=== PATIENT | female | born 1930 | race Caucasian/White ===

== ENCOUNTER 2018-07-15 15:05 | Inpatient (IN) ==
--- NOTE | 2018-07-15 15:15 | Emergency Department Note ---
Disposition Clinical Impression: Hypoxemia, CHAYITO (acute kidney injury) CHF (congestive heart failure) Qualifiers: Heart failure type: unspecified Heart failure chronicity: acute on chronic Qualified Code(s): I50.9 - Heart failure, unspecified Disposition: Admitted As Inpatient General Adult HPI - General Stated complaint: retaining fluids Time Seen by Provider: 07/15/18 15:14 Nursing Notes Reviewed: Yes Vital Signs Reviewed: Yes - History of Present Illness HPI Narrative: Patient's an 87-year-old female with history of A. fib with RVR, CHF, COPD, dementia, diabetes, hypertension, CKD history of DVT, on eliquis who presents emergency Department with complaints of fluid overload. The patient has reportedly gained approximately 18 pounds in the past month. The patient has noticed slight increase in swelling in her legs and abdomen over the past month. She does not state that she feels significantly more short of breath than her baseline but she does sleep upright and uses BiPAP at night due to sleep apnea. She is on baseline 2 L of oxygen at home. She otherwise denies any fever, chills, chest pain, abdominal pain, dysuria, hematuria. - Related Data Home Medications Medication Instructions Recorded Confirmed Acetaminophen [Pain Reliever] 500 mg PO Q6H PRN 05/12/18 07/15/18 Acetaminophen [Tylenol Arthritis] 1,300 mg PO BID 05/12/18 05/12/18 Aspirin 81 mg PO HS 05/12/18 07/15/18 Docusate [Colace] 100 mg PO HS 05/12/18 07/15/18 Donepezil [Aricept] 10 mg PO HS 05/12/18 07/15/18 Ipratropium/Albuterol Neb [Duoneb] 3 ml IH Q4HR PRN 05/12/18 07/15/18 Melatonin 3 mg PO HS 05/12/18 07/15/18 Memantine HCl 10 mg PO BID 05/12/18 07/15/18 Nitroglycerin [Nitrostat] 0.4 mg SL Q5MIN PRN 05/12/18 07/15/18 Quetiapine Fumarate [Seroquel] 25 mg PO TID 05/12/18 07/15/18 Simvastatin [Zocor] 40 mg PO HS 05/12/18 07/15/18 Venlafaxine HCl [Venlafaxine HCl 150 mg PO DAILY 05/12/18 05/12/18 ER] Furosemide [Lasix] 40 mg PO BID 05/13/18 07/15/18 Guaifenesin 400 mg PO BID 05/13/18 07/15/18 Losartan [Cozaar] 50 mg PO DAILY 05/13/18 05/13/18 MOM Conc [MILK OF HUONG conc] 10 ml PO DAILY PRN 05/13/18 07/15/18 Multivitamin [Multivitamins] 1 each PO DAILY 05/13/18 07/15/18 Omega3/Dha/Epa/Fish Oil/Vit D3 1 each PO DAILY 05/13/18 07/15/18 [Fish Oil + Vitamin D-3 Softgel] Vitamin B Complex [Balanced B-50] 1 each PO DAILY 05/13/18 07/15/18 Acetaminophen [Non-Aspirin Extra 500 mg PO Q6H PRN 07/15/18 07/15/18 Strength] Ceftriaxone Sodium [Ceftriaxone] 1 gm IM DAILY 07/15/18 07/15/18 LORazepam [Ativan] 0.5 mg PO BID 07/15/18 07/15/18 Previous Rx's Medication Instructions Recorded Apixaban [Eliquis] 5 mg PO BID tablet 05/19/18 Cefdinir [Omnicef] 300 mg PO BID #6 capsule 05/19/18 Insulin LISPRO [HumaLOG] 0 units SQ HS vial 05/19/18 Insulin LISPRO [HumaLOG] 0 units SQ TIDAC vial 05/19/18 Levalbuterol Neb [Xopenex Neb] 1.25 mg IH Q4H PRN vial.neb 05/19/18 Metoprolol XL (24 HR) Succ [Toprol 200 mg PO DAILY tab.er.24h 05/19/18 Xl] Allergies Allergy/AdvReac Type Severity Reaction Status Date / Time atorvastatin [From Lipitor] Allergy See Verified 12/08/16 14:28 Comments meperidine [From Demerol] Allergy See Verified 12/08/16 14:28 Comments Penicillins Allergy See Verified 05/12/18 15:29 Comments pravastatin [From Pravachol] Allergy See Verified 12/08/16 14:28 Comments quinapril [From Accupril] Allergy See Verified 12/08/16 14:28 Comments Sulfa (Sulfonamide Allergy See Verified 12/08/16 14:28 Antibiotics) Comments Review of Systems: ROS per history of present illness, all other systems reviewed and negative or normal. All systems ED: reviewed and negative except as stated. Review of Systems: As Per HPI Past Medical History - Past Medical History Medical history: Reports: atrial fibrillation, COPD, dementia, diabetes, hypertension, renal disease Surgical history: Reports: carotid endarterectomy (bilateral), cholecystectomy, hip replacement (left), RAHUL/BSO, other (cervical fusion) Psychiatric history: Reports: depression - Social History Smoking Status: Never smoker Smokeless Tobacco Status: No Alcohol use: Reports: none Drug use: Reports: none Physical Exam General: Conversant. No apparent distress. Follow commands. Appears stated age. Neck: No JVD. Trachea midline. Neck supple. Eyes: PERRL. No scleral icterus. HENT: Normocephalic and atraumatic. Moist mucus membranes. Cardiovascular: Regular rate and rhythm. Normal S1 and S2. No murmurs appreciated. Normal capillary refill. Extremities well perfused with 2+ distal pulses bilaterally. 2-3+ edema pitting bilaterally up to the level of her ankles. No abdominal edema. Pulmonary: Crackles in bilateral bases. No wheezing. Not in respiratory distress on baseline 2 L. Speaks in full sentences. Abdomen: Soft, nondistended, and tontender. No bruits or masses. No guarding. Neuro: Alert and oriented x3. No slurred speech. No focal deficits noted. Skin: No rashes noted on visualized skin. Musculoskeletal: No bony abnormalities visualized. Moves all extremities. Psych: Normal mood. Pleasant. Makes appropriate eye contact. Course Vital Signs Temperature 97.7 F 07/15/18 15:08 Pulse Rate 103 07/15/18 15:08 Respiratory Rate 24 07/15/18 15:08 Blood Pressure 149/79 07/15/18 15:08 O2 Sat by Pulse Oximetry 91 07/15/18 15:08 Temperature 97.7 F 07/15/18 15:08 Pulse Rate 92 07/15/18 17:25 Respiratory Rate 21 07/15/18 17:25 Blood Pressure 138/97 07/15/18 17:28 O2 Sat by Pulse Oximetry 100 07/15/18 17:25 Oxygen Delivery Oxygen Delivery Nasal Cannula Medical Decision Making - [facility] Narrative Medical decision making narrative: 87 year old female with history of CHF, atrial fibrillation, COPD, RISSA, dementia, diabetes, hypertension and chronic kidney disease who presents the emergency department with complaints of fluid overload. On arrival the patient's vital signs are stable. She is alert and oriented and able to speak though does appear hard of hearing. She does have significant peripheral edema and crackles on examination. Did obtain CBC, BMP, EKG, chest x-ray, BNP, ABG and troponin which showed no significant electrolyte abnormalities. ABG shows hypoxemia which is likely her baseline given need for 2L at home. EKG appears approcimately her baseline, A. fib. BNP elevated at 751. Troponin undetectable 1. She does not have a urinary tract infection. Chest x-ray shows cardiomegaly with bibasilar atelectasis and pleural effusions. Given the pat ient's significant weight gain and peripheral edema given did give the patient 40 mg IV Lasix for CHF exacerbation. PAtient does have RISSA and requires CPAP during naps. Discussed case with on-call hospitalist Dr. Liz who agrees with plan for admission and accepts the patient to the inpatient service. Patient agrees with and understands course of treatment plan including plan for admission. All questions answered. - Medical Records Medical records reviewed: Yes I reviewed the patient's medical records. - Lab Data Lab results reviewed: Yes I reviewed the patient's lab results. Result diagrams: 07/15/18 16:17 Lab Results 07/15/18 07/15/18 07/15/18 Range/Units 15:37 16:17 16:17 Sample Site ABG pH (7.32-7.45) pH Units ABG pCO2 (35-45) mmHg ABG pO2 (85-104) mmHg ABG HCO3 (21-27) mEq/L ABG Total CO2 (20-26) mEq/L ABG O2 Saturation (95-98) % ABG Base Excess (-2 to 3) mEq/L Collin Test O2 Delivery Device Inspired O2 (1-15=lpm [id number]=%) Sodium 138 (136-145) mEq/L Potassium 3.8 (3.5-5.1) mEq/L Chloride 101 (98-107) mEq/L Carbon Dioxide 29 (23-29) mEq/L BUN 28 H (8-23) mg/dL Creatinine 1.21 H (0.60-1.20) mg/dL Est GFR ( Amer) 51 L (> 60) Est GFR (Non-Af Amer) 42 L (> 60) BUN/Creatinine Ratio 23 (6-26) Glucose 146 H (70-105) mg/dL Calculated Osmolality 294 (280-300) Calcium 8.9 (8.6-10.3) mg/dL Total Bilirubin 0.5 (0.3-1.0) mg/dL AST 26 (13-39) Units/L ALT 49 (7-52) Units/L Alkaline Phosphatase 79 (34-104) Units/L Troponin I < 0.03 (< 0.04) ng/mL B-Natriuretic Peptide 751 H (Less than 100) pg/mL Serum Total Protein 6.1 L (6.4-8.9) g/dL Albumin 3.3 L (3.5-5.7) g/dL Globulin 2.8 (2.4-3.5) g/dL Albumin/Globulin Ratio 1.2 (1.1-2.2) Urine Color Yellow (Yellow) Urine Clarity Cloudy A (Clear) Urine pH 5.5 (5.0-8.0) pH Units Ur Specific [place] 1.012 (1.010-1.025) Urine Protein Negative (Neg-Trace) mg/dL Urine Glucose (UA) Normal (Normal) mg/dL Urine Ketones Negative (Negative) mg/dL Urine Blood Negative (Negative) Urine Nitrite Negative (Negative) Urine Bilirubin Negative (Negative) Urine Urobilinogen Normal (Normal) mg/dL Ur Leukocyte Esterase Moderate H (Negative) Urine Microscopic RBC 0-3 (0-3) per hpf Urine Microscopic WBC 5-15 H (0-3) per hpf Ur Squamous Epith Cells Many H (None-Few) per lpf Ur Transition Epith Cell Moderate H (None-Few) per hpf Urine Bacteria None Seen (None-Few) per hpf Hyaline Casts Moderate H (None-Few) per lpf Ur Culture Indicated? NO. A (NO) 07/15/18 Range/Units 17:19 Sample Site R Radial ABG pH 7.38 (7.32-7.45) pH Units ABG pCO2 52 H (35-45) mmHg ABG pO2 141 H (85-104) mmHg ABG HCO3 31 H (21-27) mEq/L ABG Total CO2 32 H (20-26) mEq/L ABG O2 Saturation 99 H (95-98) % ABG Base Excess 5 H (-2 to 3) mEq/L Collin Test Positive O2 Delivery Device Cannula Inspired O2 3.0 (1-15=lpm [id number]=%) Sodium (136-145) mEq/L Potassium (3.5-5.1) mEq/L Chloride (98-107) mEq/L Carbon Dioxide (23-29) mEq/L BUN (8-23) mg/dL Creatinine (0.60-1.20) mg/dL Est GFR ( Amer) (> 60) Est GFR (Non-Af Amer) (> 60) BUN/Creatinine Ratio (6-26) Glucose (70-105) mg/dL Calculated Osmolality (280-300) Calcium (8.6-10.3) mg/dL Total Bilirubin (0.3-1.0) mg/dL AST (13-39) Units/L ALT (7-52) Units/L Alkaline Phosphatase (34-104) Units/L Troponin I (< 0.04) ng/mL B-Natriuretic Peptide (Less than 100) pg/mL Serum Total Protein (6.4-8.9) g/dL Albumin (3.5-5.7) g/dL Globulin (2.4-3.5) g/dL Albumin/Globulin Ratio (1.1-2.2) Urine Color (Yellow) Urine Clarity (Clear) Urine pH (5.0-8.0) pH Units Ur Specific [place] (1.010-1.025) Urine Protein (Neg-Trace) mg/dL Urine Glucose (UA) (Normal) mg/dL Urine Ketones (Negative) mg/dL Urine Blood (Negative) Urine Nitrite (Negative) Urine Bilirubin (Negative) Urine Urobilinogen (Normal) mg/dL Ur Leukocyte Esterase (Negative) Urine Microscopic RBC (0-3) per hpf Urine Microscopic WBC (0-3) per hpf Ur Squamous Epith Cells (None-Few) per lpf Ur Transition Epith Cell (None-Few) per hpf Urine Bacteria (None-Few) per hpf Hyaline Casts (None-Few) per lpf Ur Culture Indicated? (NO) - Radiology Data Radiology results reviewed: Yes I reviewed the patient's radiology results. Chest X-Ray 07/15/18 15:23 IMPRESSION: 1. Cardiomegaly with mild congestive heart failure. 2. Bibasilar atelectasis with bilateral effusions. D/ / 07/15/2018 16:10:09 Cecile Hinton MD / [facility] Interpreting Provider: Cecile Hinton MD - EKG Data EKG #1 EKG attestation: Yes I reviewed and interpreted this EKG. EKG results narrative: Atrial fibrillation rate of 99. Normal axis. No acute ischemic changes When compared with prior from 05/12/18 previously seen atrial fibrillation with rapid ventricular rate has improved.
--- NOTE | 2018-07-15 15:42 | Emergency Department Note ---
Disposition Clinical Impression: Hypoxemia CHF (congestive heart failure) Qualifiers: Heart failure type: unspecified Heart failure chronicity: acute on chronic Qualified Code(s): I50.9 - Heart failure, unspecified Disposition: Admitted As Inpatient Condition: Fair Forms: ED Satisfaction Letter, Work/School Release General Adult HPI - General Chief complaint: ED General Medical Stated complaint: retaining fluids Time Seen by Provider: 07/15/18 15:14 Source: patient, other Limitations: no limitations - History of Present Illness Pain Scale: 0 - Related Data Home Medications Medication Instructions Recorded Confirmed Acetaminophen [Pain Reliever] 500 mg PO Q6H PRN 05/12/18 07/15/18 Acetaminophen [Tylenol Arthritis] 1,300 mg PO BID 05/12/18 05/12/18 Aspirin 81 mg PO HS 05/12/18 07/15/18 Docusate [Colace] 100 mg PO HS 05/12/18 07/15/18 Donepezil [Aricept] 10 mg PO HS 05/12/18 07/15/18 Ipratropium/Albuterol Neb [Duoneb] 3 ml IH Q4HR PRN 05/12/18 07/15/18 Melatonin 3 mg PO HS 05/12/18 07/15/18 Memantine HCl 10 mg PO BID 05/12/18 07/15/18 Nitroglycerin [Nitrostat] 0.4 mg SL Q5MIN PRN 05/12/18 07/15/18 Quetiapine Fumarate [Seroquel] 25 mg PO TID 05/12/18 07/15/18 Simvastatin [Zocor] 40 mg PO HS 05/12/18 07/15/18 Venlafaxine HCl [Venlafaxine HCl 150 mg PO DAILY 05/12/18 05/12/18 ER] Furosemide [Lasix] 40 mg PO BID 05/13/18 07/15/18 Guaifenesin 400 mg PO BID 05/13/18 07/15/18 Losartan [Cozaar] 50 mg PO DAILY 05/13/18 05/13/18 MOM Conc [MILK OF MAGNESIA conc] 10 ml PO DAILY PRN 05/13/18 07/15/18 Multivitamin [Multivitamins] 1 each PO DAILY 05/13/18 07/15/18 Omega3/Dha/Epa/Fish Oil/Vit D3 1 each PO DAILY 05/13/18 07/15/18 [Fish Oil + Vitamin D-3 Softgel] Vitamin B Complex [Balanced B-50] 1 each PO DAILY 05/13/18 07/15/18 Acetaminophen [Non-Aspirin Extra 500 mg PO Q6H PRN 07/15/18 07/15/18 Strength] Ceftriaxone Sodium [Ceftriaxone] 1 gm IM DAILY 07/15/18 07/15/18 LORazepam [Ativan] 0.5 mg PO BID 07/15/18 07/15/18 Previous Rx's Medication Instructions Recorded Apixaban [Eliquis] 5 mg PO BID tablet 05/19/18 Cefdinir [Omnicef] 300 mg PO BID #6 capsule 05/19/18 Insulin LISPRO [HumaLOG] 0 units SQ HS vial 05/19/18 Insulin LISPRO [HumaLOG] 0 units SQ TIDAC vial 05/19/18 Levalbuterol Neb [Xopenex Neb] 1.25 mg IH Q4H PRN vial.neb 05/19/18 Metoprolol XL (24 HR) Succ [Toprol 200 mg PO DAILY tab.er.24h 05/19/18 Xl] Allergies Allergy/AdvReac Type Severity Reaction Status Date / Time atorvastatin [From Lipitor] Allergy See Verified 12/08/16 14:28 Comments meperidine [From Demerol] Allergy See Verified 12/08/16 14:28 Comments Penicillins Allergy See Verified 05/12/18 15:29 Comments pravastatin [From Pravachol] Allergy See Verified 12/08/16 14:28 Comments quinapril [From Accupril] Allergy See Verified 12/08/16 14:28 Comments Sulfa (Sulfonamide Allergy See Verified 12/08/16 14:28 Antibiotics) Comments Past Medical History - Past Medical History Medical history: Reports: atrial fibrillation, COPD, dementia, diabetes, hypertension, renal disease Surgical history: Reports: carotid endarterectomy (bilateral), cholecystectomy, hip replacement (left), RAHUL/BSO, other (cervical fusion) Psychiatric history: Reports: depression - Social History Smoking Status: Never smoker Smokeless Tobacco Status: No Alcohol use: Reports: none Drug use: Reports: none Physical Exam - General Limitations: no limitations General appearance: alert, in no apparent distress, appears intoxicated Course Vital Signs Temperature 97.7 F 07/15/18 15:08 Pulse Rate 103 07/15/18 15:08 Respiratory Rate 24 07/15/18 15:08 Blood Pressure 149/79 07/15/18 15:08 O2 Sat by Pulse Oximetry 91 07/15/18 15:08 Temperature 97.7 F 07/15/18 15:08 Pulse Rate 92 07/15/18 17:25 Respiratory Rate 21 07/15/18 17:25 Blood Pressure 138/97 07/15/18 17:28 O2 Sat by Pulse Oximetry 100 07/15/18 17:25 Oxygen Delivery Oxygen Delivery Nasal Cannula Medical Decision Making - MDM Narrative Medical decision making narrative: suspect worsening chf now with cardiomegaly and effusions and hypoxia. admit to hospitalist. pH was ok and CO2 only slightly elevated. may need possible bipap. - Medical Records Medical records reviewed: Yes I reviewed the patient's medical records. - Lab Data Lab results reviewed: Yes I reviewed the patient's lab results. Result diagrams: 07/15/18 16:17 Lab Results 07/15/18 07/15/18 07/15/18 Range/Units 15:37 16:17 16:17 Sample Site ABG pH (7.32-7.45) pH Units ABG pCO2 (35-45) mmHg ABG pO2 (85-104) mmHg ABG HCO3 (21-27) mEq/L ABG Total CO2 (20-26) mEq/L ABG O2 Saturation (95-98) % ABG Base Excess (-2 to 3) mEq/L Collin Test O2 Delivery Device Inspired O2 (1-15=lpm [id number]=%) Sodium 138 (136-145) mEq/L Potassium 3.8 (3.5-5.1) mEq/L Chloride 101 (98-107) mEq/L Carbon Dioxide 29 (23-29) mEq/L BUN 28 H (8-23) mg/dL Creatinine 1.21 H (0.60-1.20) mg/dL Est GFR ( Amer) 51 L (> 60) Est GFR (Non-Af Amer) 42 L (> 60) BUN/Creatinine Ratio 23 (6-26) Glucose 146 H (70-105) mg/dL Calculated Osmolality 294 (280-300) Calcium 8.9 (8.6-10.3) mg/dL Total Bilirubin 0.5 (0.3-1.0) mg/dL AST 26 (13-39) Units/L ALT 49 (7-52) Units/L Alkaline Phosphatase 79 (34-104) Units/L Troponin I < 0.03 (< 0.04) ng/mL B-Natriuretic Peptide 751 H (Less than 100) pg/mL Serum Total Protein 6.1 L (6.4-8.9) g/dL Albumin 3.3 L (3.5-5.7) g/dL Globulin 2.8 (2.4-3.5) g/dL Albumin/Globulin Ratio 1.2 (1.1-2.2) Urine Color Yellow (Yellow) Urine Clarity Cloudy A (Clear) Urine pH 5.5 (5.0-8.0) pH Units Ur Specific [place] 1.012 (1.010-1.025) Urine Protein Negative (Neg-Trace) mg/dL Urine Glucose (UA) Normal (Normal) mg/dL Urine Ketones Negative (Negative) mg/dL Urine Blood Negative (Negative) Urine Nitrite Negative (Negative) Urine Bilirubin Negative (Negative) Urine Urobilinogen Normal (Normal) mg/dL Ur Leukocyte Esterase Moderate H (Negative) Urine Microscopic RBC 0-3 (0-3) per hpf Urine Microscopic WBC 5-15 H (0-3) per hpf Ur Squamous Epith Cells Many H (None-Few) per lpf Ur Transition Epith Cell Moderate H (None-Few) per hpf Urine Bacteria None Seen (None-Few) per hpf Hyaline Casts Moderate H (None-Few) per lpf Ur Culture Indicated? NO. A (NO) 07/15/18 Range/Units 17:19 Sample Site R Radial ABG pH 7.38 (7.32-7.45) pH Units ABG pCO2 52 H (35-45) mmHg ABG pO2 141 H (85-104) mmHg ABG HCO3 31 H (21-27) mEq/L ABG Total CO2 32 H (20-26) mEq/L ABG O2 Saturation 99 H (95-98) % ABG Base Excess 5 H (-2 to 3) mEq/L Collin Test Positive O2 Delivery Device Cannula Inspired O2 3.0 (1-15=lpm [id number]=%) Sodium (136-145) mEq/L Potassium (3.5-5.1) mEq/L Chloride (98-107) mEq/L Carbon Dioxide (23-29) mEq/L BUN (8-23) mg/dL Creatinine (0.60-1.20) mg/dL Est GFR ( Amer) (> 60) Est GFR (Non-Af Amer) (> 60) BUN/Creatinine Ratio (6-26) Glucose (70-105) mg/dL Calculated Osmolality (280-300) Calcium (8.6-10.3) mg/dL Total Bilirubin (0.3-1.0) mg/dL AST (13-39) Units/L ALT (7-52) Units/L Alkaline Phosphatase (34-104) Units/L Troponin I (< 0.04) ng/mL B-Natriuretic Peptide (Less than 100) pg/mL Serum Total Protein (6.4-8.9) g/dL Albumin (3.5-5.7) g/dL Globulin (2.4-3.5) g/dL Albumin/Globulin Ratio (1.1-2.2) Urine Color (Yellow) Urine Clarity (Clear) Urine pH (5.0-8.0) pH Units Ur Specific [place] (1.010-1.025) Urine Protein (Neg-Trace) mg/dL Urine Glucose (UA) (Normal) mg/dL Urine Ketones (Negative) mg/dL Urine Blood (Negative) Urine Nitrite (Negative) Urine Bilirubin (Negative) Urine Urobilinogen (Normal) mg/dL Ur Leukocyte Esterase (Negative) Urine Microscopic RBC (0-3) per hpf Urine Microscopic WBC (0-3) per hpf Ur Squamous Epith Cells (None-Few) per lpf Ur Transition Epith Cell (None-Few) per hpf Urine Bacteria (None-Few) per hpf Hyaline Casts (None-Few) per lpf Ur Culture Indicated? (NO) - Radiology Data Radiology results reviewed: Yes I reviewed the patient's radiology results. Attestation Statement - Attestation Attestation: I examined this patient and my medical decision-making was reviewed with the Resident Physician. I agree with the documented findings, disposition and treatment plan as described except to the extent set forth below. 87 yo F here from [facility] for fluid retention, leg swelling, increased sleepiness. concerns for chf. has gained weight over last few weeks. hx of chf, on lasix, hx of a fib. on blood thinners. will workup for chf and check urinalysis. Chronic O2 dependent as well. ekg shows a rate of 99. Intrafibrillation. Relaxants. QRS 92. QTC 516. No signs acute ischemia.
[2018-07-15 16:05] LABS: Bilirubin,Urine Negative (Negative); Blood,Urine Negative (Negative); Clarity,Urine Cloudy (Clear); Color,Urine Yellow (Yellow); Glucose,Urine (UA) Normal (Normal); Ketones,Urine Negative (Negative); Leukocyte Esterase,Urine Moderate (Negative); Nitrite,Urine Negative (Negative); PH,Urine 5.5 pH Units (5.0-8.0); Protein,Urine Negative (Neg-Trace); Specific Gravity,Urine 1.012 (1.010-1.025); Urobilinogen,Urine Normal (Normal)
[2018-07-15 16:08] LABS: Bacteria,Urine None Seen per hpf (None-Few); Hyaline Casts,Urine Moderate per lpf (None-Few); RBC,Urine 0-3 per hpf (0-3); Squamous Epithelial Cell,Urine Many per lpf (None-Few)
[2018-07-15 16:37] LABS: Transitional Epi Cells,Urine Moderate per hpf (None-Few)
[2018-07-15 17:10] LABS: Alanine Aminotransferase 49 Units/L (7-52); Albumin 3.3 g/dL (3.5-5.7); Albumin/Globulin Ratio 1.2 (1.1-2.2); Alkaline Phosphatase 79 Units/L (34-104); Aspartate Amino Transferase 26 Units/L (13-39); BUN/Creatinine Ratio 23 (6-26); Bilirubin,Total 0.5 mg/dL (0.3-1.0); Blood Urea Nitrogen 28 mg/dL (8-23); Calcium 8.9 mg/dL (8.6-10.3); Carbon Dioxide 29 mEq/L (23-29); Chloride 101 mEq/L (98-107); Globulin 2.8 g/dL (2.4-3.5); Glucose 146 mg/dL (70-105); Osmolality,Calculated 294 (280-300); Potassium 3.8 mEq/L (3.5-5.1); Sodium 138 mEq/L (136-145); Total Protein 6.1 g/dL (6.4-8.9); Troponin I < 0.03 ng/mL (< 0.04); eGFR For Non-African Americans 42 (> 60)
[2018-07-15] MEDS ORDERED: Furosemide 40 MG/4 ML VIAL IVP ONE (17:13)
[2018-07-15 17:24] LABS: ABG Base Excess 5 mEq/L (-2 to 3); ABG HCO3 31 mEq/L (21-27); ABG Oxygen Saturation 99 % (95-98); ABG PCO2 52 mmHg (35-45); ABG PH 7.38 pH Units (7.32-7.45); ABG PO2 141 mmHg (85-104); ABG TCO2 32 mEq/L (20-26)
[2018-07-15] MEDS ORDERED: Nitroglycerin 0.4 MG TAB.SUBL SL PRN (20:18)
[2018-07-15] MEDS ORDERED: Ipratropium/Albuterol Neb 3 ML IH PRN (20:18)
[2018-07-15] MEDS ORDERED: Levalbuterol Neb 1.25 MG/3 ML IH PRN (20:18)
[2018-07-15] MEDS ORDERED: MOM Conc 10 ML UD.LIQ PO PRN (20:18)
--- NOTE | 2018-07-15 20:26 | Internal Med History&Physical ---
Date of Encounter: 07/15/18 Time of Encounter: 20:22 Internal Medicine - H&P: HPI Chief complaint: Fluid retention History of present illness: Ms. Reyez is a 87 year old female with PMH of paroxysmal a fibrillation on anticoagulation, dementia, SVT, coronary artery disease, type 2 diabetes, COPD, CKG and history of DVT who presented to the ED with a chief complaint of fluid overload. On my assessment patient was somewhat of a poor historian, difficulty hearing. At baseline patient is reported to be alert oriented 1-2 given her dementia. As such, history was obtained from previous medical records and ED report. Patient presents from her extended care facility with reportedly 18 pound weight gain in the past month. She has had increased swelling in the leg and abdomen. Patient currently takes 40 mg of Lasix twice a day. No reports of chest pain or recent illness. Cannot determine dietary indiscretions or medication compliance. On arrival patient was afebrile, hemodynamically stable with mild tachycardia. Laboratory workup was notable for a mild CHAYITO and BNP of 751. Chest x-ray shows cardiomegaly with mild congestive heart failure and bilateral effusions. EKG showed atrial fibrillation rate controlled with no ischemic changes. Patient was given 1 dose of 40 mg IV push Lasix in the ED. We will admit for possible CHF exacerbation. Past Med Surg Social Fam HX - Past Medical History Medical history: atrial fibrillation, COPD, dementia, diabetes, hypertension, renal disease Additional medical history: anemia, CKD Psychiatric history: depression - Past Surgical History Surgical History: carotid endarterectomy (bilateral), cholecystectomy, hip replacement (left), RAHUL/BSO, other (cervical fusion) Additional surgical history: L hip replacement 2003, mult back, - Social History Smoking Status: Never smoker Smokeless Tobacco Status: No Alcohol use: none Drug use: none - Family History Mother Living Status: Hx Family Cardiac Disorders: Yes (CAD, HTN) Father Living Status: Hx Family Cardiac Disorders: Yes (CAD, HTN) Brother Hx Family Cardiac Disorders: Yes (multiple brothers with CAD) Internal Medicine - H&P: Meds Acetaminophen [Pain Reliever] 500 mg PO Q6H PRN 05/12/18 [History] Acetaminophen [Tylenol Arthritis] 1,300 mg PO BID 05/12/18 [History] Aspirin 81 mg PO HS 05/12/18 [History] Docusate [Colace] 100 mg PO HS 05/12/18 [History] Donepezil [Aricept] 10 mg PO HS 05/12/18 [History] Ipratropium/Albuterol Neb [Duoneb] 3 ml IH Q4HR PRN 05/12/18 [History] Melatonin 3 mg PO HS 05/12/18 [History] Memantine HCl 10 mg PO BID 05/12/18 [History] Nitroglycerin [Nitrostat] 0.4 mg SL Q5MIN PRN 05/12/18 [History] Quetiapine Fumarate [Seroquel] 25 mg PO TID 05/12/18 [History] Simvastatin [Zocor] 40 mg PO HS 05/12/18 [History] Venlafaxine HCl [Venlafaxine HCl ER] 150 mg PO DAILY 05/12/18 [History] Furosemide [Lasix] 40 mg PO BID 05/13/18 [History] Guaifenesin 400 mg PO BID 05/13/18 [History] Losartan [Cozaar] 50 mg PO DAILY 05/13/18 [History] MOM Conc [MILK OF MAGNESIA conc] 10 ml PO DAILY PRN 05/13/18 [History] Multivitamin [Multivitamins] 1 each PO DAILY 05/13/18 [History] Omega3/Dha/Epa/Fish Oil/Vit D3 [Fish Oil + Vitamin D-3 Softgel] 1 each PO DAILY 05/13/18 [History] Vitamin B Complex [Balanced B-50] 1 each PO DAILY 05/13/18 [History] Apixaban [Eliquis] 5 mg PO BID tablet 05/19/18 [Rx] Cefdinir [Omnicef] 300 mg PO BID #6 capsule 05/19/18 [Rx] Insulin LISPRO [HumaLOG] 0 units SQ HS vial 05/19/18 [Rx] Insulin LISPRO [HumaLOG] 0 units SQ TIDAC vial 05/19/18 [Rx] Levalbuterol Neb [Xopenex Neb] 1.25 mg IH Q4H PRN vial.neb 05/19/18 [Rx] Metoprolol XL (24 HR) Succ [Toprol Xl] 200 mg PO DAILY tab.er.24h 05/19/18 [Rx] Acetaminophen [Non-Aspirin Extra Strength] 500 mg PO Q6H PRN 07/15/18 [History] Ceftriaxone Sodium [Ceftriaxone] 1 gm IM DAILY 07/15/18 [History] LORazepam [Ativan] 0.5 mg PO BID 07/15/18 [History] Allergy/AdvReac Type Severity Reaction Status Date / Time atorvastatin [From Lipitor] Allergy See Verified 12/08/16 14:28 Comments meperidine [From Demerol] Allergy See Verified 12/08/16 14:28 Comments Penicillins Allergy See Verified 05/12/18 15:29 Comments pravastatin [From Pravachol] Allergy See Verified 12/08/16 14:28 Comments quinapril [From Accupril] Allergy See Verified 12/08/16 14:28 Comments Sulfa (Sulfonamide Allergy See Verified 12/08/16 14:28 Antibiotics) Comments All Systems PM: A 10-system review of systems was performed and is negative for pertinent findings except as documented above in the HPI. - Constitutional Constitutional: no chills, no fever(s), no night sweats - EENT Eyes: no change in vision, no discharge, no pain, no photophobia Ears: no ear discharge, no ear pain, no tinnitus Nose, mouth and throat: no dysphagia, no nasal discharge, no neck pain, no sore throat - Cardiovascular Cardiovascular ROS IM: no chest pain, no diaphoresis, no dyspnea, no lightheadedness, no palpitations, no syncope - Respiratory Respiratory: no cough, no dyspnea, no wheezing, no excessive phlegm production - Gastrointestinal Gastrointestinal: no abdominal pain, no diarrhea, no hematemesis, no hematoch ezia, no melena, no nausea, no vomiting - Genitourinary Genitourinary: no change in urinary stream, no dysuria, no flank pain, no hematuria - Musculoskeletal Musculoskeletal ROS IM: no numbness, no tingling - Integumentary Integumentary IM: no rash, no unusual bruising - Neurological Neurological ROS: no confusion, no convulsions, no focal weakness, no numbness, no tingling, no tremor(s) - Hematologic/Lymphatic Hematologic/Lymphatic: no easy bruising - Constitutional Vitals: Temp Pulse Resp BP Pulse Ox 97.6 F 112 17 135/89 97 07/15/18 20:15 07/15/18 20:15 07/15/18 20:15 07/15/18 20:15 07/15/18 20:15 Exam: General: Alert and oriented Skin:Normal color, no rash, no lesions. HEENT:EOM, pupils equal, round and reactive. Cardiovascular:Normal S1 & S2, no rubs, murmurs or gallops. No JVD. Pulse regular. Lungs:Normal breath sounds, no wheezes or crackles. Abdomen:Soft, non-tender, no rigidity. Extremities:No deformity, no edema or tenderness, no joint swelling or clubbing. Neurological:Normal cognition and motor skills. Pulses:Carotid and radial pulses normal +2. Rest of the physical exam is non contributory Internal Med - H&P Results - Labs CBC & Chem 7: 07/15/18 16:17 Labs: BMP 07/15/18 16:17 Sodium 138 Potassium 3.8 Chloride 101 Carbon Dioxide 29 BUN 28 H Creatinine 1.21 H Glucose 146 H Calcium 8.9 Cardiac Enzymes 07/15/18 Range/Units 16:17 Troponin I < 0.03 (< 0.04) ng/mL Liver Function 07/15/18 Range/Units 16:17 Total Bilirubin 0.5 (0.3-1.0) mg/dL AST 26 (13-39) Units/L ALT 49 (7-52) Units/L Alkaline Phosphatase 79 (34-104) Units/L Albumin 3.3 L (3.5-5.7) g/dL Urine 07/15/18 Range/Units 15:37 Urine Color Yellow (Yellow) Urine Clarity Cloudy A (Clear) Urine pH 5.5 (5.0-8.0) pH Units Ur Specific [place] 1.012 (1.010-1.025) Urine Protein Negative (Neg-Trace) mg/dL Urine Glucose (UA) Normal (Normal) mg/dL - ABG Interpretation ABG results: 07/15/18 17:19 ABG pH 7.38 ABG pCO2 52 H ABG pO2 141 H ABG HCO3 31 H ABG Total CO2 32 H ABG O2 Saturation 99 H ABG Base Excess 5 H - Impressions ITS Impressions Chest X-Ray 07/15/18 15:23 IMPRESSION: 1. Cardiomegaly with mild congestive heart failure. 2. Bibasilar atelectasis with bilateral effusions. D/ / 07/15/2018 16:10:09 Cecile Hinton MD / formerly [facility] Interpreting Provider: Cecile Hinton MD - Assessment and Plan (1) CHF (congestive heart failure) Current Visit: Yes Status: Acute Assessment and plan: Patient presents with increasing lower extremity edema with reported 18 pound weight gain in the past month and mild exertional dyspnea per family report. Patient is on 2 L at baseline at home. No reports of chest pain. Troponin negative 1 Elevated BNP of 751. Patient states she thinks she is compliant with her medications however could not be verified at family was not at bedside. Last echo was performed in May 2018 which showed an EF of 40-45% with indeterminate diastolic dysfunction and mild concentric left ventricular hypertrophy. Patient EKG shows atrial fibrillation with a heart rate of 99. No acute ischemic changes when compared with prior EKG in May. She does have 2+ lower extremity edema and abdominal distention. Patient received 40 mg of IV Lasix in the ED. At this time suspect acute CHF exacerbation. Etiology of which at this time is unclear as patient is a poor historian and cannot provide any information to suggest an ischemic versus dietary versus medication noncompliance history. At this time there is no evidence of any ischemia. -Telemetry -Fluid restricted diet of 1500; strict I's and O's/daily weights -Patient had recent echo in May. We will hold off repeating echo for now. -Patient see one-time dose of Lasix 40 mg in the ED. Patient does have mild elevation in her creatinine. We will reassess kidney function in the morning before continuing IV Lasix. -Consider abdominal ultrasound to evaluate for ascites -Consider cardiology consult. Qualifiers: Heart failure type: unspecified Heart failure chronicity: acute on chronic Qualified Code(s): I50.9 - Heart failure, unspecified (2) CHAYITO (acute kidney injury) Current Visit: Yes Status: Acute Assessment and plan: presented with mild elevation in creatinine of 1.21. Baseline appears to be 1.1. Possibly type I cardiorenal syndrome in the setting of CHF. Patient received 40 mg IV push Lasix in the ED. -We will reassess kidney function in the morning before resuming IV Lasix versus home dose. (3) Atrial fibrillation Current Visit: Yes Status: Acute Assessment and plan: History of paroxysmal atrial fibrillation rate controlled on anticoagulation with Eliquis. EKG shows atrial fibrillation with heart rate of 99. -Continue with beta meliza and anticoagulation Qualifiers: Atrial fibrillation type: paroxysmal Qualified Code(s): I48.0 - Paroxysmal atrial fibrillation (4) COPD (chronic obstructive pulmonary disease) Current Visit: Yes Status: Acute Assessment and plan: Stable. No evidence of COPD exacerbation. Unclear if patient is on oxygen. -Continue home medications Qualifiers: Emphysema type: unspecified Qualified Code(s): J43.9 - Emphysema, unspecified (5) DVT prophylaxis Current Visit: Yes Status: Acute - Time Spent With Patient Total time spent is greater than 50% in coordination of care (as documented) at patient's floor/unit and/or counseling patient:
[2018-07-15] MEDS: Aspirin 81 MG TAB.CHEW PO SCH (22:07)
[2018-07-15] MEDS: GuaiFENesin Liq 200 MG/10 ML UDC PO SCH (22:08)
[2018-07-15] MEDS: Melatonin 3 MG TABLET PO SCH (22:08)
[2018-07-15] MEDS: Apixaban 5 MG TABLET PO SCH (22:08)
[2018-07-16] MEDS ORDERED: Naloxone 0.4 MG/ML INJ IVP PRN (00:54)
[2018-07-16] MEDS: Multivit/Ca/Min/Fe/FA 1 TAB TABLET PO SCH (08:27)
[2018-07-16] MEDS: Metoprolol XL (24 HR) Succ 50 MG TAB.ER.24H PO SCH (08:27)
[2018-07-16] MEDS: Vitamin B Complex/Vit C/Vit E 1 EACH TABLET PO SCH (08:27)
[2018-07-16] MEDS: GuaiFENesin Liq 200 MG/10 ML UDC PO SCH ×2 (08:27→22:03)
[2018-07-16] MEDS: Apixaban 5 MG TABLET PO SCH ×2 (08:27→22:03)
[2018-07-16 08:47] LABS: Hemoglobin 8.7 g/dL (11.5-15.4); Red Cell Distribution Width 16.1 % (11.5-14.5)
[2018-07-16 08:48] LABS: Basophils # 0.1 K/mcL (0.0-0.2); Eosinophils # 0.4 K/mcL (0.0-0.6); Eosinophils % 6.5 %; Hematocrit 29.9 % (35.3-44.9); Immature Granulocytes % 0.2 % (0-4); Lymphocytes # 1.6 K/mcL (0.6-4.6); Lymphocytes % 25.4 %; Mean Corpuscular HGB Conc 29.1 g/dL (31.6-35.5); Mean Corpuscular Hemoglobin 25.1 pg (28.0-33.3); Mean Corpuscular Volume 86.2 fL (83.0-100.0); Mean Platelet Volume 10.7 fL (9.4-12.4); Monocytes # 0.8 K/mcL (0.0-1.3); Monocytes % 13.2 %; Neutrophils # 3.3 K/mcL (1.6-8.9); Platelet Count 194 K/mcL (140-400); Red Blood Count 3.47 M/mcL (3.82-4.97); Segmented Neutrophils % 53.7 %
[2018-07-16 08:54] LABS: INR 2.2; Prothrombin Time 24.3 Seconds (9.4-12.1)
[2018-07-16] MEDS ORDERED: VITAMIN D PO SCH (09:00)
[2018-07-16] MEDS ORDERED: FISH OIL PO SCH (09:00)
[2018-07-16 09:09] LABS: Albumin 3.4 g/dL (3.5-5.7); Albumin/Globulin Ratio 1.2 (1.1-2.2); Bilirubin,Total 0.7 mg/dL (0.3-1.0); Calcium 9.1 mg/dL (8.6-10.3); Globulin 2.8 g/dL (2.4-3.5); Magnesium 2.1 mg/dL (1.6-2.6); Potassium 3.9 mEq/L (3.5-5.1); Total Protein 6.2 g/dL (6.4-8.9)
[2018-07-16] MEDS ORDERED: Furosemide 40 MG/4 ML VIAL IVP SCH (13:45)
[2018-07-16] MEDS: Furosemide 40 MG/4 ML VIAL IVP SCH ×2 (14:13→16:51)
[2018-07-16] MEDS: Aspirin 81 MG TAB.CHEW PO SCH (22:02)
[2018-07-16] MEDS: Melatonin 3 MG TABLET PO SCH (22:02)
[2018-07-17 04:17] LABS: Mean Corpuscular Hemoglobin 24.6 pg (28.0-33.3); Red Cell Distribution Width 16.2 % (11.5-14.5)
[2018-07-17 04:19] LABS: Basophils % 0.5 %; Eosinophils # 0.3 K/mcL (0.0-0.6); Eosinophils % 4.3 %; Hemoglobin 8.5 g/dL (11.5-15.4); Immature Granulocytes % 0.2 % (0-4); Lymphocytes # 1.3 K/mcL (0.6-4.6); Lymphocytes % 22.5 %; Mean Corpuscular HGB Conc 28.3 g/dL (31.6-35.5); Mean Platelet Volume 10.9 fL (9.4-12.4); Monocytes # 0.9 K/mcL (0.0-1.3); Monocytes % 14.9 %; Platelet Count 194 K/mcL (140-400); Red Blood Count 3.45 M/mcL (3.82-4.97); Segmented Neutrophils % 57.6 %
[2018-07-17 04:20] LABS: Neutrophils # 3.3 K/mcL (1.6-8.9)
[2018-07-17 04:38] LABS: Calcium 8.9 mg/dL (8.6-10.3); Magnesium 2.1 mg/dL (1.6-2.6)
[2018-07-17 05:15] LABS: Hypochromasia Present (Not Present); Platelet Estimate Normal (Normal)
[2018-07-17] MEDS: Multivit/Ca/Min/Fe/FA 1 TAB TABLET PO SCH (08:49)
[2018-07-17] MEDS: Apixaban 5 MG TABLET PO SCH ×2 (08:49→21:00)
[2018-07-17] MEDS: Furosemide 40 MG/4 ML VIAL IVP SCH (08:49)
[2018-07-17] MEDS: Vitamin B Complex/Vit C/Vit E 1 EACH TABLET PO SCH (08:50)
[2018-07-17] MEDS: Metoprolol XL (24 HR) Succ 50 MG TAB.ER.24H PO SCH (08:50)
[2018-07-17] MEDS: GuaiFENesin Liq 200 MG/10 ML UDC PO SCH ×2 (08:50→21:01)
[2018-07-17] MEDS ORDERED: *HR* Dextrose 50 % in Water (Syg) 50 ML SYRINGE IVP PRN (09:58)
[2018-07-17] MEDS ORDERED: Dextrose Gel 15 GM/37.5 ML TUBE PO PRN ×2 (09:58)
[2018-07-17] MEDS ORDERED: D5% in Water 1,000 ML IVC PRN (09:58)
[2018-07-17] MEDS: Insulin LISPRO 300 UNITS/3 ML VIAL SQ SCH ×2 (12:53→18:25)
--- NOTE | 2018-07-17 14:02 | Internal Med Progress Note ---
Hospitalist Progress Note - Encounter Date of Encounter: 07/17/18 Time of Encounter: 09:50 - Subjective Interval History: Patient is lying down in bed. Feels that her breathing has improved overall. Denies any fevers or chills. No orthopnea or PND. Has noted some decrease in her lower extremity swelling. Has good urine output overnight with 800 mL out. - Exam Vitals: Temp Pulse Resp BP Pulse Ox 97.9 F 111 18 128/83 100 07/17/18 11:48 07/17/18 11:48 07/17/18 11:48 07/17/18 11:48 07/17/18 11:48 Exam: General: Patient is alert, mild distress, morbidly obese oriented x 3 ENT: Mucous membranes moist Respiratory: Decreased breath sounds at both bases. Cardiovascular: Regular rate and rhythm. s1 and s2 normal No clicks, rubs, gallops, or murmurs. Bilateral pedal edema Abdomen: Abdomen is soft, nontender. Bowel sounds are present Musculoskeletal: Spontaneously moving all extremities Skin: warm, dry, intact. Neuro: Alert oriented x 3 normal cranial nerves, no focal deficits - Assessment and Plan (1) CHF (congestive heart failure) Current Visit: Yes Status: Acute Assessment and Plan: Patient has had good response to intravenous Lasix. Will transition to oral Lasix from tonight. Continue to monitor renal function and urine output. (2) CHAYITO (acute kidney injury) Current Visit: Yes Status: Ruled-out Assessment and Plan: Baseline creatinine appears to be between 1.2 and 1.5. Currently creatinine is at her baseline. We will continue to monitor renal function while patient is receiving IV Lasix. (3) COPD (chronic obstructive pulmonary disease) Current Visit: Yes Status: Acute Assessment and Plan: Not in acute exacerbation. Continue duo nebs as needed (4) Atrial fibrillation Current Visit: Yes Status: Chronic Assessment and Plan: On Eliquis for anticoagulation. Toprol for rate control. Heart rate slightly elevated this morning. Will continue to monitor and add Lopressor IV as needed for heart rate greater than 120 (5) DVT prophylaxis Current Visit: Yes Status: Acute Assessment and Plan: On Eliquis - Time Spent with Patient Total time spent is greater than 50% in coordination of care (as documented) at patient's floor/unit and/or counseling patient: Internal Medicine: Result - Labs CBC & Chem 7: 07/17/18 03:21 07/17/18 03:21 Labs: Short CBC 07/17/18 Range/Units 03:21 WBC 5.8 (4.3-11.1) K/mcL Hgb 8.5 L (11.5-15.4) g/dL Hct 30.0 L (35.3-44.9) % Plt Count 194 (140-400) K/mcL Neutrophils # 3.3 (1.6-8.9) K/mcL BMP 07/17/18 03:21 Sodium 141 Potassium 4.0 Chloride 101 Carbon Dioxide 33 H BUN 27 H Creatinine 1.28 H Glucose 133 H Calcium 8.9 - ABG Interpretation ABG results: ABG ABG pH 7.38 pH Units (7.32-7.45) 07/15/18 17:19 ABG pCO2 52 mmHg (35-45) H 07/15/18 17:19 ABG pO2 141 mmHg (85-104) H 07/15/18 17:19 ABG O2 Saturation 99 % (95-98) H 07/15/18 17:19 PT/INR, D-dimer PT 24.3 Seconds (9.4-12.1) H 07/16/18 08:23 - Impressions Impressions Chest X-Ray 07/17/18 11:00 IMPRESSION: Mild heart failure, slightly improved since 07/15/2018. D/ / Harrison Doherty / Harrison Doherty Interpreting Provider: Harrison Doherty Consult Discharge Plan - Plan Referrals: Christian Yang MD [Primary Care Provider] - ___ (1) CHF (congestive heart failure) Qualifiers: Heart failure type: unspecified Heart failure chronicity: acute on chronic Qualified Code(s): I50.9 - Heart failure, unspecified (3) COPD (chronic obstructive pulmonary disease) Qualifiers: Emphysema type: unspecified Qualified Code(s): J43.9 - Emphysema, unspecified (4) Atrial fibrillation Qualifiers: Atrial fibrillation type: paroxysmal Qualified Code(s): I48.0 - Paroxysmal atrial fibrillation
[2018-07-17] MEDS ORDERED: *HR* Metoprolol 5 MG/5 ML VIAL IVP PRN (14:13)
[2018-07-17] MEDS: Furosemide 40 MG TABLET PO SCH (18:32)
[2018-07-17] MEDS ORDERED: Insulin LISPRO 300 UNITS/3 ML VIAL SQ SCH (21:00)
[2018-07-17] MEDS: Aspirin 81 MG TAB.CHEW PO SCH (21:00)
[2018-07-17] MEDS: Melatonin 3 MG TABLET PO SCH (21:00)
--- NOTE | 2018-07-18 01:08 | Event Note ---
Date of Encounter: 07/16/18 Time of Encounter: 19:00 This 87-year-old woman was admitted to the hospitalist service after midnight. With acute on chronic combined heart failure. She has gained about 20 pounds in her weight since May of this year; about 3 pounds in the last 2 days. She has underlying COPD and atrial fibrillation. Physical exam is basically bengn. Chest x-ray shows mild congestive heart failure. She has developed mild acute kidney injury with creatinine of 1.21. She is on 3 L/min nasal cannula oxygen (chronic). I spent some time with the patient and her family. I talked to them about the treatment with IV and oral Lasix. We talked about mild fluid restriction and checking the patient's weight daily or every other day. They showed understanding for the topic. The patient will be oservation admission, code 41.
[2018-07-18 06:51] LABS: BUN/Creatinine Ratio 24 (6-26); Blood Urea Nitrogen 24 mg/dL (8-23); Calcium 9.1 mg/dL (8.6-10.3); Carbon Dioxide 30 mEq/L (23-29); Chloride 102 mEq/L (98-107); Glucose 127 mg/dL (70-105); Osmolality,Calculated 294 (280-300); Sodium 139 mEq/L (136-145); eGFR For Non-African Americans 53 (> 60)
[2018-07-18] MEDS: Insulin LISPRO 300 UNITS/3 ML VIAL SQ SCH ×3 (08:58→17:38)
[2018-07-18] MEDS: Vitamin B Complex/Vit C/Vit E 1 EACH TABLET PO SCH (09:35)
[2018-07-18] MEDS: Furosemide 40 MG TABLET PO SCH ×2 (09:35→17:43)
[2018-07-18] MEDS: Apixaban 5 MG TABLET PO SCH (09:35)
[2018-07-18] MEDS: GuaiFENesin Liq 200 MG/10 ML UDC PO SCH (09:35)
[2018-07-18] MEDS: Metoprolol XL (24 HR) Succ 50 MG TAB.ER.24H PO SCH (09:35)
[2018-07-18] MEDS: Multivit/Ca/Min/Fe/FA 1 TAB TABLET PO SCH (09:35)
--- NOTE | 2018-07-18 14:03 | Discharge Summary ---
- NOTES TO OUTPATIENT PROVIDER Notes to Outpatient Provider: Patient with a history of atrial fibrillation, dementia, coronary artery disease, diabetes, COPD he was hospitalized here for acute congestive heart failure. She was treated with intravenous Lasix with good urine output. She is now doing much better and is clinically stable for discharge. She will follow up with cardiology after discharge. She will continue to take Lasix orally. Patient is on anticoagulation for A. fib with Eliquis. Orders not resulted at time of discharge: Pending orders 07/15/18 15:23 ECG 12 lead ECG [ECG] Stat Date of Encounter: 07/18/18 Time of Encounter: 14:01 - Discharge Diagnosis (1) CHF (congestive heart failure) Priority: Primary Status: Acute Qualifiers: Heart failure type: systolic Heart failure chronicity: acute on chronic Qualified Code(s): I50.23 - Acute on chronic systolic (congestive) heart failure (2) CHAYITO (acute kidney injury) Priority: Secondary Status: Ruled-out (3) COPD (chronic obstructive pulmonary disease) Priority: Secondary Status: Acute Qualifiers: Emphysema type: unspecified Qualified Code(s): J43.9 - Emphysema, unspecified (4) Atrial fibrillation Priority: Secondary Status: Chronic Qualifiers: Atrial fibrillation type: paroxysmal Qualified Code(s): I48.0 - Paroxysmal atrial fibrillation (5) DVT prophylaxis Priority: Secondary Status: Acute (6) Chronic kidney disease, stage III (moderate) Priority: Secondary Status: Chronic Hospital course: Ms. Reyez is a 87 year old female Patient with a history of atrial fibrillation, dementia, coronary artery disease, diabetes, COPD he was hospitalized here for acute congestive heart failure. She was treated with intravenous Lasix with good urine output. She is now doing much better and is clinically stable for discharge. She will follow up with cardiology after discharge. She will continue to take Lasix orally. Patient is on anticoagulation for A. fib with Eliquis. Discharge discussed with: patient - Time Spent with Patient Total time spent providing and/or coordinating discharge services: Time spent: Greater than 30 minutes (32 min) - Discharge Medications Prescriptions: Continue Simvastatin [Zocor] 40 mg PO HS Aspirin 81 mg PO HS Docusate [Colace] 100 mg PO HS Donepezil [Aricept] 10 mg PO HS Memantine HCl 10 mg PO BID Venlafaxine HCl [Venlafaxine HCl ER] 150 mg PO QAM Quetiapine Fumarate [Seroquel] 25 mg PO BID Melatonin 3 mg PO HS Ipratropium/Albuterol Neb [Duoneb] 3 ml IH Q4HR PRN PRN Reason: Shortness Of Breath Nitroglycerin [Nitrostat] 0.4 mg SL Q5MIN PRN PRN Reason: Chest Pain Acetaminophen [Pain Reliever] 500 mg PO Q6H PRN PRN Reason: Mild Pain Furosemide [Lasix] 40 mg PO BID Guaifenesin 400 mg PO Q12H PRN PRN Reason: Congestion MOM Conc [MILK OF MAGNESIA conc] 30 ml PO DAILY PRN PRN Reason: Constipation Multivitamin [Multivitamins] 1 each PO DAILY Omega3/Dha/Epa/Fish Oil/Vit D3 [Fish Oil + Vitamin D-3 Softgel] 1 cap PO BID Levalbuterol Neb [Xopenex Neb] 1.25 mg IH Q4H PRN vial.neb PRN Reason: Dyspnea Apixaban [Eliquis] 5 mg PO BID tablet Metoprolol Succinate 200 mg PO DAILY Acetaminophen [Tylenol Arthritis] 1,300 mg PO BID LORazepam [Ativan] 0.5 mg PO BID PRN 5 Days #10 tablet PRN Reason: Anxiety Home Medications: Acetaminophen [Pain Reliever] 500 mg PO Q6H PRN 05/12/18 [History] Aspirin 81 mg PO HS 05/12/18 [History] Docusate [Colace] 100 mg PO HS 05/12/18 [History] Donepezil [Aricept] 10 mg PO HS 05/12/18 [History] Ipratropium/Albuterol Neb [Duoneb] 3 ml IH Q4HR PRN 05/12/18 [History] Melatonin 3 mg PO HS 05/12/18 [History] Memantine HCl 10 mg PO BID 05/12/18 [History] Nitroglycerin [Nitrostat] 0.4 mg SL Q5MIN PRN 05/12/18 [History] Quetiapine Fumarate [Seroquel] 25 mg PO BID 05/12/18 [History] Simvastatin [Zocor] 40 mg PO HS 05/12/18 [History] Venlafaxine HCl [Venlafaxine HCl ER] 150 mg PO QAM 05/12/18 [History] Furosemide [Lasix] 40 mg PO BID 05/13/18 [History] Guaifenesin 400 mg PO Q12H PRN 05/13/18 [History] MOM Conc [MILK OF MAGNESIA conc] 30 ml PO DAILY PRN 05/13/18 [History] Multivitamin [Multivitamins] 1 each PO DAILY 05/13/18 [History] Omega3/Dha/Epa/Fish Oil/Vit D3 [Fish Oil + Vitamin D-3 Softgel] 1 cap PO BID 05/13/18 [History] Apixaban [Eliquis] 5 mg PO BID tablet 05/19/18 [Rx] Levalbuterol Neb [Xopenex Neb] 1.25 mg IH Q4H PRN vial.neb 05/19/18 [Rx] Acetaminophen [Tylenol Arthritis] 1,300 mg PO BID 07/16/18 [History] Metoprolol Succinate 200 mg PO DAILY 07/16/18 [History] LORazepam [Ativan] 0.5 mg PO BID PRN 5 Days #10 tablet 07/18/18 [Rx] Allergies/Adverse Reactions: Allergy/AdvReac Type Severity Reaction Status Date / Time atorvastatin [From Lipitor] Allergy See Verified 12/08/16 14:28 Comments meperidine [From Demerol] Allergy See Verified 12/08/16 14:28 Comments Penicillins Allergy See Verified 05/12/18 15:29 Comments pravastatin [From Pravachol] Allergy See Verified 12/08/16 14:28 Comments quinapril [From Accupril] Allergy See Verified 12/08/16 14:28 Comments Sulfa (Sulfonamide Allergy See Verified 12/08/16 14:28 Antibiotics) Comments Date of admission: 07/16/18 00:54 Primary care physician: Christian Yang MD Consults: 07/15/18 20:14 Consult to Cardiac Rehabilitation-Phase1 [CONS] Routine Comment: Reason for Consult: heart failure Call Completed: Yes Consult to Nurse Navigator [CONS] Routine Comment: 07/15/18 22:13 Consult to Configuration Developer [CONS] Routine Reason for SW Consult: ECF residentFranny 07/16/18 09:47 Consult to Nurse Navigator [CONS] Routine Comment: chf Discharging clinician: Emma Montiel Anticipated date of discharge: 07/18/18 - Constitutional Vitals: Temp Pulse Resp BP Pulse Ox 98.1 F 93 16 115/65 97 07/18/18 11:37 07/18/18 11:37 07/18/18 11:37 07/18/18 11:37 07/18/18 11:37 General appearance: Present: cooperative, A&O X 3, morbidly obese, pleasant, answers questions appropriately Exam: . - Respiratory Respiratory exam: Present: CTAB. Absent: accessory muscle use, rales, rhonchi, wheezes - Cardiovascular Cardiovascular exam: Present: RRR, +S1, +S2. Absent: diastolic murmur, gallop, rubs, systolic murmur - GI/Abdominal GI/Abdominal exam: Present: normal bowel sounds, soft, no peritoneal signs. Absent: distended, tenderness - Extremities Exam Extremities exam: Present: pedal edema, warm, radial pulses palpable and symmetrical. Absent: calf tenderness, cyanotic - Patient Status Disposition: Transfer SNF Condition: Good Functional capacity at discharge: independent ambulation Overall status at discharge: patient is progressing back to baseline - Discharge Instructions Instructions: Chronic Obstructive Pulmonary Disease (DC), Heart Failure (DC), Anemia (GEN), Atrial Fibrillation (DC) Follow Up With: Christian Yang MD [Primary Care Provider] - (in 1-2 weeks) Maicol Ghotra CNP [Advanced Practice Nurse] - (in 1-2 weeks) - Diet and Activity Activity: as per physical therapy Diet: low fat, low cholesterol, low salt diet, other (1.5 L fluid restriction)
--- NOTE | 2018-07-18 14:12 | Physician Discharge Referral ---
[facility] Referral Info Provider in Charge after Transfer: PCP Institutional Level of Care: Skilled - Diagnosis (1) CHF (congestive heart failure) Priority: Primary Status: Acute (2) CHAYITO (acute kidney injury) Priority: Secondary Status: Ruled-out (3) COPD (chronic obstructive pulmonary disease) Priority: Secondary Status: Acute (4) Atrial fibrillation Priority: Secondary Status: Chronic (5) DVT prophylaxis Priority: Secondary Status: Acute (6) Chronic kidney disease, stage III (moderate) Priority: Secondary Status: Chronic Prognosis: Fair Aware of Diagnosis: Patient Aware of Prognosis: Patient - Transfer Medications Prescriptions: LORazepam [Ativan] 0.5 mg PO BID PRN 5 Days #10 tablet PRN Reason: Anxiety Home Medications: Acetaminophen [Pain Reliever] 500 mg PO Q6H PRN 05/12/18 [History] Aspirin 81 mg PO HS 05/12/18 [History] Docusate [Colace] 100 mg PO HS 05/12/18 [History] Donepezil [Aricept] 10 mg PO HS 05/12/18 [History] Ipratropium/Albuterol Neb [Duoneb] 3 ml IH Q4HR PRN 05/12/18 [History] Melatonin 3 mg PO HS 05/12/18 [History] Memantine HCl 10 mg PO BID 05/12/18 [History] Nitroglycerin [Nitrostat] 0.4 mg SL Q5MIN PRN 05/12/18 [History] Quetiapine Fumarate [Seroquel] 25 mg PO BID 05/12/18 [History] Simvastatin [Zocor] 40 mg PO HS 05/12/18 [History] Venlafaxine HCl [Venlafaxine HCl ER] 150 mg PO QAM 05/12/18 [History] Furosemide [Lasix] 40 mg PO BID 05/13/18 [History] Guaifenesin 400 mg PO Q12H PRN 05/13/18 [History] MOM Conc [MILK OF MAGNESIA conc] 30 ml PO DAILY PRN 05/13/18 [History] Multivitamin [Multivitamins] 1 each PO DAILY 05/13/18 [History] Omega3/Dha/Epa/Fish Oil/Vit D3 [Fish Oil + Vitamin D-3 Softgel] 1 cap PO BID 05/13/18 [History] Apixaban [Eliquis] 5 mg PO BID tablet 05/19/18 [Rx] Levalbuterol Neb [Xopenex Neb] 1.25 mg IH Q4H PRN vial.neb 05/19/18 [Rx] Acetaminophen [Tylenol Arthritis] 1,300 mg PO BID 07/16/18 [History] Metoprolol Succinate 200 mg PO DAILY 07/16/18 [History] LORazepam [Ativan] 0.5 mg PO BID PRN 5 Days #10 tablet 07/18/18 [Rx] Allergies/Adverse Reactions: Allergy/AdvReac Type Severity Reaction Status Date / Time atorvastatin [From Lipitor] Allergy See Verified 12/08/16 14:28 Comments meperidine [From Demerol] Allergy See Verified 12/08/16 14:28 Comments Penicillins Allergy See Verified 05/12/18 15:29 Comments pravastatin [From Pravachol] Allergy See Verified 12/08/16 14:28 Comments quinapril [From Accupril] Allergy See Verified 12/08/16 14:28 Comments Sulfa (Sulfonamide Allergy See Verified 12/08/16 14:28 Antibiotics) Comments - Respiratory Orders Oxygen / L per min (Keep sats >88%) Smoking Cessation: Smoking cessation has been advised. For more information, call the [place] Tobacco Quit Line at 9-891-WAPG-NOW. - Advance Directives Code Status: Full Code - Mobility Orders Other (per PT) - Rehabiliation Orders Rehab Potential: Fair Rehab Orders: Evaluation for Physical Therapy, Evaluation for Occupational Therapy - Treatments Skin tear care topically daily PRN per policy - Diet Orders Cardiac (Fluid restriction to 1.5 L per day) CERTIFICATION: I certify that the transfer of the above named patient to an Extended Care Facility is necessary for the continuing treatment of the diagnosis listed. The above information is true and accurate reflection of patient's current condition. Confidential - Redisclosure prohibited without a patient's written consent.
[2018-07-18 18:41] VITALS: BP 95/53
== END 2018-07-18 19:02 | DRG 291 ==
LOC: EMEROOARM 15:05 → 2ANU 15:05 → SUATTDRO 07-16 00:54
PROVIDERS: ADMIT Hospitalist; ATTEND Internal Medicine